=== PATIENT | male | born 1985 | race Caucasian/White ===

== ENCOUNTER 2022-11-30 19:00 | Outpatient (CLI) | payer OTHER | END 2022-11-30 19:01 | disposition home or self-care (01) | LOC: SLEEPLAB 19:00 | PROVIDERS: ATTEND Internal Medicine | DX: G47.33 Obstructive sleep apnea (adult) (pediatric) (principal) | CPT/HCPCS: 95810 ==

== ENCOUNTER 2022-12-18 19:00 | Outpatient (CLI) | payer OTHER | END 2022-12-18 19:01 | disposition home or self-care (01) | LOC: SLEEPLAB 19:00 | PROVIDERS: ATTEND Internal Medicine | DX: G47.33 Obstructive sleep apnea (adult) (pediatric) (principal); R06.83 Snoring | CPT/HCPCS: 95811 ==